=== PATIENT | male | born 1995 | race Two or more races ===

== ENCOUNTER 2024-11-06 19:54 | Emergency (ER) | payer MEDICAID, SELFPAY ==
[2024-11-06 20:26] VITALS: BP 136/74; PULSE 74; RESP 17; TEMP 36.9; O2SAT 97
[2024-11-06] MEDS: KETOROLAC INJ 60 MG/2 ML VIAL IM (20:47)
--- NOTE | 2024-11-06 20:58 | PD.EDHAND ---
Upper Extremity Injury RME/HPI General Chief Complaint: Hand/Wrist Problems Stated Complaint: R wrist pain/swelling Time Seen by Provider: 11/06/24 20:34 Arrival date/time: 11/06/24 19:54 28M with no significant PMH presents to ED with 3 days of R wrist pain/swelling w/o fall/trauma. Pain radiates upwards. 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 Limitations: no limitations Related Data Allergies Allergy/AdvReac Type Severity Reaction Status Date / Time No Known Allergies Allergy Verified 11/06/24 19:58 Review of Systems Review of Systems Systems Reviewed: All systems reviewed, normal except as documented Constitutional Constitutional: Reports system reviewed and no additional complaints, except as documented, Denies fever(s) and Denies headache(s) ENT Ears, Nose, Mouth, and Throat: Denies disequilibrium and Denies headache(s) Cardiovascular Cardiovascular: Reports system reviewed and no additional complaints, except as documented, Denies chest pain and Denies dyspnea Respiratory Respiratory: Reports system reviewed and no additional complaints, except as documented, Denies cough and Denies dyspnea Gastrointestinal Gastrointestinal: Reports system reviewed and no additional complaints, except as documented, Denies abdominal pain, Denies nausea and Denies vomiting Musculoskeletal Musculoskeletal: Reports as per HPI, Reports arthralgias and Reports joint swelling Neurologic Neurologic: Reports system reviewed and no additional complaints, except as documented, Denies confusion, Denies disequilibrium and Denies headache(s) Psychiatric Psychiatric: Denies confusion Past Medical History Social History SMOKING STATUS: Never smoker ED Exam General Limitations: Present no limitations General appearance: Present alert and in no apparent distress Head Head exam: Present atraumatic Eye Eye exam: Present normal appearance, PERRL and EOMI ENT ENT exam: Present normal exam, normal oropharynx and mucous membranes moist Neck Neck exam: Present normal inspection, full ROM and trachea midline Chest Chest inspection: Present normal inspection and symmetric chest wall rise Respiratory Respiratory exam: Present normal lung sounds bilaterally Cardiovascular Cardiovascular exam: Present regular rate, normal rhythm and normal heart sounds Abdominal Exam Abdominal exam: Present soft and normal bowel sounds Extremities Exam Extremities exam: Present normal inspection and full ROM Back Exam Back exam: Present normal inspection and full ROM Neurological Exam Neurological exam: Present alert, oriented X3 and CN II-XII intact Psychiatric Psychiatric exam: Present normal affect and normal mood Skin Skin exam: Present warm, dry, intact and normal color Course Quality Measures none Orders Category Date Time Status shyam wrap [Splint / Immobilizer] STAT Care 11/06/24 20:34 Active Ketorolac Inj [Toradol Inj] Med 11/06/24 20:34 Discontinued 60 mg IM X1 ONE Vital Signs Vital signs: Vital Signs Temperature 98.5 F 11/06/24 20:26 Pulse Rate 74 11/06/24 20:26 Respiratory Rate 17 11/06/24 20:26 Blood Pressure 136/74 H 11/06/24 20:26 Pulse Oximetry (%) 97 11/06/24 20:26 Oxygen Delivery Method Room Air 11/06/24 20:26 O2 at 97% on RA and WNLs Extremity Injury MDM Narrative MDM Narrative:: 28M with no significant PMH presents to ED with 3 days of R wrist pain/swelling w/o fall/trauma. Pain radiates upwards. 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 Physical exam reveals no R wrist tenderness or obvious swelling. Pain is with ROM, which is intact. Patient is afebrile, calm, and alert. Likely due to overuse injury. Given SHYAM, meds, and retirement plan counselor. Patient data External records reviewed:: None Clinical information provided by:: patient Social determinants that could affect healthcare access:: none Patient has the following chronic illnesses:: none How is presenting disease/condition affected by chronic disease/condition?: no chronic disease Evaluation data The following diagnostics were reviewed and interpreted by me:: other (specify) (none) Lab and/or radiology exams considered but not ordered:: not ordered Interpretation Summary: n/a Medications / Prescriptions Medications or Prescriptions considered but not ordered:: ordered Medication administrations:: Medication Administration History Discontinued Medications Ketorolac Tromethamine (Ketorolac Inj 60 Mg/2 Ml Vial) 60 mg IM X1 ONE Stop: 11/06/24 20:35 Last Admin: 11/06/24 20:47 Dose: 60 mg Documented By: OA above Consultations Consultation(s) initiated? (list below): No Diagnosis Upper Extremity Injury Differential Diagnosis: sprain and strain of wrist, fracture of wrist, finger sprain, dislocation of finger, Colles' fracture, fracture of hand and other (wrist pain and overuse injury ) Most likely diagnosis given after review of the tests above:: wrist pain and overuse injury Admission Indicated Admission indicated?: not indicated Admission Request Was there a request for admission?: No Disposition Plan Disposition Plan: Discharge Discharge Attestation Discharge Attestation: The patient and all family members were given an opportunity to ask questions and understood the discharge instructions. Discharge instructions specifically effects, indications for sooner follow up or return to the emergency department, and the expected course of current diagnosis. Patient condition: Stable Discharge Plan Plan Patient Disposition: HOME (Self Care) Disposition Comment: Stable Problem List Clinical Impression: Overuse injury, Pain, wrist Patient/Caregiver Discharge Instructions Education Materials: ED Pain, Acute, Uncertain Cause, ED RICE Additional Instructions: Please follow-up with PCP within 24-48 hours and return immediately if symptoms worsen. If problem persists, recommend outpatient PT and/or MRI follow-up. In the meantime, rest, use ice/heat, and/or compression. Print Language: Malian Stand Alone Forms: Work/School Release, Patient Portal Info Letter PA/MARCE Supervising Physician NANDO/MARCE Supervising Physician: Dr. Lira
== END 2024-11-06 20:50 | disposition home or self-care (01) ==
LOC: SERX 21:09
PROVIDERS: Emergency Provider Emergency Medicine
DX: S69.91XA Unspecified injury of right wrist, hand and finger(s), initial encounter (principal); X58.XXXA Exposure to other specified factors, initial encounter
CPT/HCPCS: 96372; 99283; J1885

== ENCOUNTER 2024-12-25 17:34 | Emergency (ER) | payer MEDICAID, SELFPAY ==
[2024-12-25 17:35] VITALS: BMI 22.1
[2024-12-25 18:39] VITALS: BP 122/75; PULSE 73; RESP 16; TEMP 37; O2SAT 99
--- NOTE | 2024-12-25 18:42 | XR_ITS ---
Examination: PA lateral chest 2 views Technique: Upright PA lateral chest 2 views Exam date and time: December 25, 2024 1927 hrs. Indications: Coughing beginning 3 days ago. Findings: Normal heart size The lungs are clear. The osseous structures are intact Impression: No active disease
--- NOTE | 2024-12-25 18:42 | PD.EDRME ---
Rapid Medical Screening Exam RME Arrival date/time: 12/25/24 17:34 29 yo m present to ED for c/o of cough for 3 days I have greeted and performed a focused initial assessment of this patient. A comprehensive ED assessment and evaluation of the patient, analysis of all test results, and completion of the medical decision making process will be conducted by additional ED providers. Chief Complaint: Flu Like Symptoms Time Seen by Provider: 12/25/24 17:58 Vital signs: Vital Signs Temperature 98.6 F 12/25/24 18:39 Pulse Rate 73 12/25/24 18:39 Respiratory Rate 16 12/25/24 18:39 Blood Pressure 122/75 12/25/24 18:39 Pulse Oximetry (%) 99 12/25/24 18:39 Oxygen Delivery Method Room Air 12/25/24 18:39
--- NOTE | 2024-12-25 19:35 | PD.EDURI ---
Upper Respiratory Inf. RME/HPI General Chief Complaint: Flu Like Symptoms Stated Complaint: COUGH, FLU X3DAYS Time Seen by Provider: 12/25/24 17:58 Arrival date/time: 12/25/24 17:34 RME / HPI RME / HPI Narrative: 12/25/24 17:34 29 yo m present to ED for c/o of cough for 3 days I have greeted and performed a focused initial assessment of this patient. A comprehensive ED assessment and evaluation of the patient, analysis of all test results, and completion of the medical decision making process will be conducted by additional ED providers. DR. SALINAS MAIN ED EVALUATION: Related Data Allergies Allergy/AdvReac Type Severity Reaction Status Date / Time No Known Allergies Allergy Verified 12/25/24 17:37 Course Orders Category Date Time Status Bedside Influenza A&B Antigen Test NOW Care 12/25/24 18:42 Completed XR chest 2V Stat Exams 12/25/24 18:42 Ordered Vital Signs Vital signs: Vital Signs Temperature 98.6 F 12/25/24 18:39 Pulse Rate 73 12/25/24 18:39 Respiratory Rate 16 12/25/24 18:39 Blood Pressure 122/75 12/25/24 18:39 Pulse Oximetry (%) 99 12/25/24 18:39 Oxygen Delivery Method Room Air 12/25/24 18:39 Upper Respiratory Infection MDM Narrative MDM Narrative:: IRhonda am scribing for and in the presence of Dr. Salinas. Discharge Plan Patient/Caregiver Discharge Instructions Print Language: Cypriot
--- NOTE | 2024-12-25 19:51 | EDNOTE_ITS ---
<Statement entered by Lidia Salinas MD - 12/26/24 03:23> As co-signing physician, I was present and available for consult prn. I concur with the plan and care as documented by the midlevel provider. Upper Respiratory Inf. RME/HPI General Chief Complaint: Flu Like Symptoms Stated Complaint: COUGH, FLU X3DAYS Time Seen by Provider: 12/25/24 17:58 Arrival date/time: 12/25/24 17:34 29 year old male present to emergency room with c/o of cough for 3 days. denies any significant past medical history SEVERITY: Symptoms are described as being severe with limitations on activities of daily living CONTEXT: The patient is unable to identify any inciting events. DURATION/TIMING: The symptoms started approximately 3 days . ASSOCIATED SYMPTOMS: The patient is unable to identify any other associated symptoms. MODIFYING FACTORS: The patient is unable to identify any alleviating or aggravating symptoms. PERTINENT ROS: no chest pain/shortness of breath no nausea,vomiting, diarrhea, no dizziness/headache no rash no loc/syncope episode no abd/back pain REVIEW OF SYSTEMS: See History of Present Illness - with the exception of those mentioned in the history of present illness, all other systems reviewed and reported as negative GENERAL: In general the patient is awake, interactive, in an emergency department gurney. HEAD/EYES/EARS/NOSE/THROAT: normo-cephalic, atraumatic, mucus membranes are moist, anicteric, palpebral conjunctiva is pink, trachea is midline. CARDIOVASCULAR: regular rate and regular rhythm, no murmurs, heart sounds are not distant, strong pulses in all four extremities that are equal and symmetric bilateral upper and lower extremities, normal capillary refill. CHEST/PULMONARY: normal chest rise and fall, good air movement, clear to auscultation bilaterally, normal inspiratory to expiratory ratios without evidence of respiratory distress. NECK: No midline/Paraspinal tenderness, no step off ROM/Strenght intact No Kernig and bruzinski sign. No trauma ABDOMEN: soft, not tender, no masses appreciated BACK: normal range of motion without pain. NEUROLOGICAL: cranio-facial features are symmetric, moves all four extremities equally without obvious limitations or weakness. EXTREMITY: no tenderness to palpation over the long bones or large joints of the bilateral upper and lower extremities, no joint swelling, no joint erythema, no signs of trauma, no unilateral leg swelling and no peripheral edema. SKIN: warm, dry, well-perfused, no jaundice, no rash, no telangiectasias or petechia. PSYCH: calm, cooperative, no evidence of psychosis or agitation RME / HPI RME / HPI Narrative: 12/25/24 17:34 29 yo m present to ED for c/o of cough for 3 days I have greeted and performed a focused initial assessment of this patient. A comprehensive ED assessment and evaluation of the patient, analysis of all test results, and completion of the medical decision making process will be conducted by additional ED providers. DR. SALINAS MAIN ED EVALUATION: Related Data Previous Rx's ?Medication ?Instructions ?Recorded benzonatate 200 mg capsule 200 mg PO BID PRN cough #30 caps 12/25/24 Allergies Allergy/AdvReac Type Severity Reaction Status Date / Time No Known Allergies Allergy Verified 12/25/24 17:37 Course Course Course Narrative: This? patient presents with symptoms suspicious for likely viral upper respiratory infection. Differential includes bacterial pneumonia, sinusitis, allergic rhinitis, influenza . Do not suspect underlying cardiopulmonary process. I considered, but think unlikely, dangerous causes of this patient?s symptoms to include ACS, CHF or COPD exacerbations, pneumonia, pneumothorax. Patient is nontoxic appearing and not in need of emergent medical intervention. Plan: influenza, chest xray , reassurance, reassessment, over the counter medications, discharge with PCP followup Quality Measures none Orders Category Date Time Status Bedside Influenza A&B Antigen Test NOW Care 12/25/24 18:42 Completed XR chest 2V Stat Exams 12/25/24 18:42 Completed Vital Signs Vital signs: Vital Signs Temperature 98.6 F 12/25/24 18:39 Pulse Rate 73 12/25/24 18:39 Respiratory Rate 16 12/25/24 18:39 Blood Pressure 122/75 12/25/24 18:39 Pulse Oximetry (%) 99 12/25/24 18:39 Oxygen Delivery Method Room Air 12/25/24 18:39 Upper Respiratory Infection Patient data External records reviewed:: None Clinical information provided by:: patient Social determinants that could affect healthcare access:: none Patient has the following chronic illnesses:: n/a How is presenting disease/condition affected by chronic disease/condition?: uneffected by Evaluation data The following diagnostics were reviewed and interpreted by me:: lab results and radiology exam(s) Lab and/or radiology exams considered but not ordered:: none Interpretation Summary: xray: no acute findings influenza negative Medications / Prescriptions Medications or Prescriptions considered but not ordered:: none Medication administrations:: none Consultations Consultation(s) initiated? (list below): No Diagnosis Upper Respiratory Differential Diagnosis: upper respiratory infection, viral infection and influenza Most likely diagnosis given after review of the tests above:: uri Admission Indicated Admission indicated?: not indicated Admission Request Was there a request for admission?: No Disposition Plan Disposition Plan: Discharge Discharge Attestation Discharge Attestation: The patient and all family members were given an opportunity to ask questions and understood the discharge instructions. Discharge instructions specifically effects, indications for sooner follow up or return to the emergency department, and the expected course of current diagnosis. Patient condition: Stable Discharge Plan Plan Patient Disposition: HOME (Self Care) Health Concerns: Follow with PMD as directed Take tylenol or motrin as need Return to ED if sx worsen Prescriptions/Referrals Prescriptions/Med Rec: New benzonatate 200 mg capsule 200 mg PO BID PRN (Reason: cough) Qty: 30 0RF Problem List Clinical Impression: Upper respiratory infection Patient/Caregiver Discharge Instructions Education Materials: ED URI, Viral, No Abx (Adult) Print Language: Slovak Stand Alone Forms: [employer] Award Info., Patient Portal Info Letter
== END 2024-12-25 20:42 | disposition home or self-care (01) ==
PROVIDERS: Emergency Provider Emergency Medicine
DX: J06.9 Acute upper respiratory infection, unspecified (principal)
CPT/HCPCS: 71046; 87400; 99283

== ENCOUNTER 2025-11-13 12:06 | Emergency (ER) | payer MEDICAID, SELFPAY ==
[2025-11-13 12:07] VITALS: BMI 26.1
[2025-11-13 12:38] VITALS: BP 124/80; PULSE 79; RESP 18; TEMP 36.6; O2SAT 100
--- NOTE | 2025-11-13 12:49 | EDNOTE_ITS ---
<Statement entered by Lidia Salinas MD - 11/13/25 17:50> As co-signing physician, I was present and available for consult prn. I concur with the plan and care as documented by the midlevel provider. ED General RME/HPI General Chief complaint: Urogenital-Male Stated complaint: INFLAMMED BLADDER X3 DAYS, DYSURIA Time Seen by Provider: 11/13/25 12:48 Arrival date/time: 11/13/25 12:06 CC: Lower abdominal pain painful urination HPI ongoing for the past 3 days prior history 6 months ago spontaneous resolution denies fever chills nausea vomiting headache shortness of breath difficulty breathing no OTC medicines taken. Patient is not sexually active in the past 2 years denies any penile discharge between urination. Vital signs noted to be stable. Related Data Previous Rx's ?Medication ?Instructions ?Recorded benzonatate 200 mg capsule 200 mg PO BID PRN cough #30 caps 12/25/24 phenazopyridine 100 mg tablet 100 mg PO TID #6 tabs (Pyridium) Allergies Allergy/AdvReac Type Severity Reaction Status Date / Time No Known Allergies Allergy Verified 11/13/25 12:09 Review of Systems Review of Systems Narrative Review of Systems: GEN: No fever, no chills, no weight loss EYES: No discharge, no visual changes, no pain HEENT: No ear pain, no congestion, no sore throat PULM: No shortness of breath, no cough, no congestion CV: No chest pain, no dyspnea on exertion, no palpitations GI: No nausea, no vomiting, no diarrhea, no pain, no constipation : No frequency, no urgency, + dysuria MUSC/SKEL: No joint pain, no back pain SKIN: No rash PSYCH: No hallucinations, no depression HEME/LYMPH: No easy bleeding or bruising tendencies NEURO: No weakness, no headache Past Medical History Social History SMOKING STATUS: Never smoker ED Exam Narrative Physical exam: [General: Not in any acute distress Head normocephalic HEENT: Within acceptable limits Neck is supple nontender Chest equal chest rise nontender to palpation Respiratory: Clear to auscultation no wheezes crackles or rubs CV: Rate rhythm is regular no murmurs rubs or clicks Abdomen is soft nontender no masses positive bowel sounds all 4 quadrants Back: No CVA tenderness no spinous process tenderness from cervical spine thoracic and lumbar spine Skin: Intact no petechiae rash induration ulceration or crepitus Extremities: Moving all extremity against resistance cap refill less than 2 seconds neurosensory intact Neuro: Awake alert oriented x3 Glascow coma 15 no focal deficits] Course Quality Measures none Orders Category Date Time Status Urinalysis, C/S if Indicated Stat Lab 11/13/25 13:29 Completed Vital Signs Vital signs: Vital Signs Temperature 98 F 11/13/25 12:38 Pulse Rate 79 11/13/25 12:38 Respiratory Rate 18 11/13/25 12:38 Blood Pressure 124/80 11/13/25 12:38 Pulse Oximetry (%) 100 11/13/25 12:38 Oxygen Delivery Method Room Air 11/13/25 12:38 Discharge Plan Plan Patient Disposition: HOME (Self Care) Patient condition on transfer: Stable Prescriptions/Referrals Prescriptions/Med Rec: New phenazopyridine [Pyridium] 100 mg tablet 100 mg PO TID Qty: 6 0RF No Action benzonatate 200 mg capsule 200 mg PO BID PRN (Reason: cough) Qty: 30 0RF Referrals: No Primary/Family,Physician [Primary Care Provider] - In 1 week Problem List Clinical Impression: Dysuria Patient/Caregiver Discharge Instructions Other Activity Instructions:: Take the medication as prescribed for 3 days, note it will make your urine bright orange. Follow-up with your primary care doctor. Education Materials: ED Dysuria, Uncertain Cause (Adult) Print Language: Filipino Stand Alone Forms: [employer] Award Info., Patient Portal Info Letter PA/BOOK SEWING MACHINE OPERATOR Supervising Physician PA/BOOK SEWING MACHINE OPERATOR Supervising Physician: Sriram Prince ENP [facility] Clinical Information Provided by: patient Medical Records reviewed [facility] Meds/Rx considered, not ordered None Labs/Rad/Tests considered, not ordered None Chronic Illness/Social Conditions which may negatively complicate care or outcome(s)-explain: None or not applicable EKG EKG not done Labs Labs: interpreted by me Lab(s) Interpretation(s): Urine is negative for urinary tract infection. Imaging Imaging interpretation: none
[2025-11-13 13:39] LABS: Collection Type, Urine Clean Catch
[2025-11-13 14:03] LABS: Bilirubin,Urine Negative (Negative); Blood,Urine Negative (Negative); Clarity,Urine Clear (Clear/Hazy); Color,Urine Yellow (Lt Yel-Yel); Culture Indicated,Urine Not Indicated; Glucose, Urine Negative (Negative); Ketones,Urine Negative (Negative); Leukocyte Esterase,Urine Negative (Negative); Nitrite,Urine Negative (Negative); PH,Urine 6.5 (5.0-7.0); Protein,Urine Trace (Neg - Trace); RBC,Urine 4 /hpf (0-3); Specific Gravity,Urine 1.034 (1.001-1.035); Squamous Epithelial Cell,Urine < 1 /hpf (0-5); Urobilinogen,Urine Negative mg/dL (0.0-1.0); WBC,Urine 1 /hpf (0-5)
== END 2025-11-13 14:44 | disposition home or self-care (01) ==
PROVIDERS: Registered Nurse General Practice; Emergency Provider Emergency Medicine
DX: R30.0 Dysuria (principal)
CPT/HCPCS: 81001; 99282